=== PATIENT | female | born 1935 | race Caucasian/White ===

== ENCOUNTER 2017-01-30 18:33 | Emergency (ER) | payer MEDICARE, OTHER ==
[~2017-01-30] VITALS: Ht 162.6 cm; Wt 58.5 kg
--- NOTE | ~2017-01-30 | CR282 ---
[facility] A Service [facility] RADIOLOGY TEXT RESULTS PATIENT: BJ HARRIS LOCATION: SED : 39 UNIT #: [id number] AGE: [address]: Lucille Yusuf SEX: F ORDER DR: [id number] [address] [address] [id number] E MR#: [id number] #: [id number] NAME: BJ HARRIS : 1935 SEX: F STUDY DATE/TIME: 01/30/2017 19:48 UNIT: SED ROOM: STUDY DESCRIPTION: CR Wrist Min 3 View Rt Attending Physician: Lucille Yusuf Pa-C Ordering Physician: Lucille Yusuf Pa-C Primary Care Physician: Elina Gamez M.D. MEDICAL IMAGING REPORT This report is preliminary unless electronic signature is present. EXAM Right wrist series 01/30/2017 HISTORY Right wrist pain, red and swollen, 3 days duration. No known injury. Prior history of colon and uterine cancer 2001. FINDINGS AP, lateral and oblique radiographs of the right wrist are presented. There is extensive bony demineralization. No evidence of acute fracture or traumatic malalignment. There are calcifications in the triangular fibrocartilage ligament. There is generalized narrowing of the radiocarpal and carpocarpal joint spaces. There is soft tissue swelling circumferentially around the wrist, more pronounced anteriorly and posteriorly without soft tissue defect, subcutaneous air or radiodense foreign body. Etiology for the soft tissue swelling is unclear. Correlate with any localized symptoms of inflammation or edema. Questionable soft tissue swelling in the hand and digits as well. Dictated by... Favian Ness M.D. THIS IS AN ELECTRONICALLY VERIFIED REPORT Favian Ness M.D. at 01/31/2017 5:13 PM EVIE/zeina TD: 01/30/2017 22:43 JOB #: [id number] MEDICAL IMAGING REPORT [facility] A Service [facility] RADIOLOGY TEXT RESULTS PATIENT: BJ HARRIS LOCATION: [facility] [place] [facility] UNIT #: [id number] AGE: [address]: Lucille Yusuf PAC SEX: F ORDER DR: Page 1 of 1
[~2017-01-30 18:33] MED LIST: ACETAMINOPHEN PO; ALLOPURINOL300 MG PO; ARIXTRA2.5 MG/0.5 INJ; ASPIRIN81 M2 PO; ASPIRINEC PO; ATENOLOL25 MG PO; B-121000 MC1 PO; BACTRIM DS TABL1 TA1 PO; BENICAR HCT 40-1 TA1 PO; BENICAR PO; BONIVA150 MG PO; CLEOCIN HCL300 M1 PO; COLACE PO; COUMADIN PO; CYANOCOBAL1000 MCG/M SUBQ; DEPAKOTE PO; DIGESTIVE PROB250 MG PO; DIVALPROEX SOD500 MG PO; DOCUSATE SODIU100 MG PO; DULCOLAX5 M1 PO; FERRO-TIME325 MG PO; FOLBIC TABLET1 TA1 PO; FOLIC ACID1 MG PO; GLUCOPHAGE XR500 MG PO; HYDRALAZINE HCL50 MG PO; HYDROXYZINE PAM25 MG PO; KEPPRA500 M2 PO; KLOR-CON PO; KROGER PHARMACY; LASIX PO; LEVAQUIN PO; LOVENOX40 MG/0.4 INJ; MAPAP500 M1 PO; METFORMIN PO; MIACALCIN4 ML; MOBIC PO; MUCINEX D ER T1 EACH PO; NORCO 5/325 TAB1 TAB PO; OXYCODONE-ACET1 EACH PO; OYSTER CALCIUM500 MG PO; PERCOCET5/325 PO; PERCOCET7.5 PO; SENNA PO; SEROQUEL25 MG PO; VICODIN 5/500 T1 TAB PO; VIMPAT100 MG PO; VISTARIL PO; ZOCOR PO; ZOCOR20 MG PO; ZYLOPRIM PO; [UNRECOGNIZED DRUG - REMARK]
== END 2017-01-30 20:37 | disposition home or self-care (01) ==
LOC: SED 18:33
DX: L03.113 Cellulitis of right upper limb (principal); I10 Essential (primary) hypertension; F17.210 Nicotine dependence, cigarettes, uncomplicated; Z88.5 Allergy status to narcotic agent; Z79.899 Other long term (current) drug therapy
CPT/HCPCS: 73110; 99283